=== PATIENT | female | born 1995 | race Caucasian/White ===

== ENCOUNTER 2016-04-06 10:52 | Inpatient (IN) | payer OTHER ==
[~2016-04-06] VITALS: Ht 162.6 cm; Wt 78.5 kg
[2016-04-06 11:25] VITALS: BMI 29.7
[2016-04-06] MEDS ORDERED: TERBUTALINE 1 MG/ML VIAL SUBQ PRN (11:50)
[2016-04-06] MEDS ORDERED: METOCLOPRAMIDE 10 MG/2 ML VIAL IV PUSH PRN (11:50)
[2016-04-06] MEDS ORDERED: ONDANSETRON 4 MG VIAL IV PRN (11:50)
[2016-04-06] MEDS ORDERED: MORPHINE 4 MG/ML SYR IV PRN (11:50)
[2016-04-06] MEDS ORDERED: PROMETHAZINE 25 MG/ML VIAL IV PRN (11:50)
[2016-04-06] MEDS ORDERED: FAMOTIDINE 20 MG TAB PO PRN (11:50)
[2016-04-06] MEDS ORDERED: ALU/MAG/SIM 30 ML UDC PO PRN (11:50)
[2016-04-06] MEDS ORDERED: OXYTOCIN 15 UNITS/250 ML NS 250 ML IV SCH (11:50)
[2016-04-06] MEDS ORDERED: LIDOCAINE 1% BUFFERED 1 ML SYR INTRADERM PRN (11:50)
[2016-04-06] MEDS ORDERED: OXYTOCIN 15 UNITS/250 ML NS 15 UNITS in PART FILL PIGGYBACK 1 EA IV SCH (11:50)
[2016-04-06] MEDS ORDERED: PENICILLIN G 5 MU in SODIUM CHLORIDE 0.9% 250 ML IV ONE (11:50)
[2016-04-06] MEDS ORDERED: CEFAZOLIN (LD/OB) 100 ML IV PRN (11:50)
[2016-04-06] MEDS ORDERED: ACETAMINOPHEN 325 MG TAB PO PRN (11:50)
[2016-04-06] MEDS ORDERED: FAMOTIDINE 20 MG INJ IV PRN (11:50)
[2016-04-06] MEDS ORDERED: LIDOCAINE 1% 30 ML PF INFILTRATE ONE (11:50)
[2016-04-06 12:17] VITALS: Ht 162.6 cm; Wt 78.5 kg
[2016-04-06] MEDS: LACT RINGERS 1,000 ML IV SCH ×2 (12:30→22:57)
[2016-04-06] MEDS ORDERED: MISSING DOSE XX ONE ×2 (16:30→22:15)
[2016-04-06] MEDS ORDERED: ROPIV/FENT 0.2%-2MCG/ML 100 ML EPIDURAL ONE (16:47)
[2016-04-06] MEDS ORDERED: FENTANYL 100 MCG/2 ML AMP ONE (16:48)
[2016-04-06] MEDS ORDERED: LACT RINGERS 500 ML IV PRN (17:20)
[2016-04-06] MEDS ORDERED: SODIUM CHLORIDE 0.9% 500 ML IV PRN (17:20)
[2016-04-06] MEDS ORDERED: FENTANYL 100 MCG/2 ML AMP EPIDURAL ONE (17:20)
[2016-04-06] MEDS ORDERED: LACT RINGERS 500 ML IV ONE (17:20)
[2016-04-06] MEDS: PENICILLIN G 2.5 MU in SODIUM CHLORIDE 0.9% 100 ML IV SCH ×2 (18:05→22:57)
[2016-04-06] MEDS: ROPIV/FENT 0.2%-2MCG/ML 100 ML EPIDURAL SCH (18:21)
[2016-04-06] MEDS ORDERED: **ONLY ANESTEHSIA MAY ORDER OPIATES WHILE ON EPIDURAL XX SCH (20:00)
[2016-04-07] VITALS (15 sets, daily range): BP systolic 89–130; RESP 16–24; TEMP 97.3–98.2
[2016-04-07] MEDS: ROPIV/FENT 0.2%-2MCG/ML 100 ML EPIDURAL SCH (02:09)
[2016-04-07] MEDS: PENICILLIN G 2.5 MU in SODIUM CHLORIDE 0.9% 100 ML IV SCH ×2 (02:10→20:07)
[2016-04-07] MEDS ORDERED: DERMOPLAST SPRAY TOPICAL PRN (04:15)
[2016-04-07] MEDS ORDERED: MAG HYDROX 30 ML UDC PO PRN (04:15)
[2016-04-07] MEDS ORDERED: BISACODYL 10 MG SUPP RECTAL PRN (04:15)
[2016-04-07] MEDS ORDERED: ZOLPIDEM 5 MG TAB PO PRN (04:15)
[2016-04-07] MEDS ORDERED: MEASLES,MUMPS,RUBELLA VAC SUBQ.VACC ONE (04:15)
[2016-04-07] MEDS ORDERED: TDaP 0.5 ML VIAL IM.VACC ONE (04:15)
[2016-04-07] MEDS ORDERED: ASTRINGENT MED PADS 40'S TOPICAL PRN (04:15)
[2016-04-07] MEDS: MISOPROSTOL 200 MCG TAB PO SCH ×2 (04:34→10:14)
[2016-04-07] MEDS: Ibuprofen 600 MG TAB PO SCH ×4 (04:34→23:26)
[2016-04-07] MEDS: OXYTOCIN 15 UNITS/250 ML NS 250 ML IV SCH ×2 (04:34→04:35)
[2016-04-07] MEDS: PRENATAL VITAMIN TAB PO SCH (10:14)
[2016-04-07] MEDS: DOCUSATE SOD 100 MG CAP PO SCH ×2 (10:14→20:59)
[2016-04-08 01:03] VITALS: BP_SYST 91; RESP 15; TEMP 98
[2016-04-08 05:33] VITALS: BP_SYST 116; RESP 18; TEMP 97.6
[2016-04-08] MEDS: Ibuprofen 600 MG TAB PO SCH ×2 (05:44→11:58)
[2016-04-08] MEDS: PRENATAL VITAMIN TAB PO SCH (10:20)
[2016-04-08] MEDS: DOCUSATE SOD 100 MG CAP PO SCH (10:20)
[2016-04-08 10:37] VITALS: BP_SYST 118; RESP 16; TEMP 98.1
[2016-04-08 14:36] VITALS: BP_SYST 118; RESP 16; TEMP 98.1
== END 2016-04-08 15:43 | disposition home or self-care (01) | DRG 775 ==
LOC: LDOP 10:52 → LD 14:22 → OB 04-07 06:37
PROVIDERS: ADMIT Obstetrics & Gynecology; ATTEND Obstetrics & Gynecology
PROC: 10E0XZZ Delivery of Products of Conception, External Approach (ICD-10-PCS; principal; 2016-04-07)
PROC: 0HQ9XZZ Repair Perineum Skin, External Approach (ICD-10-PCS; 2016-04-07)
DX: O70.0 First degree perineal laceration during delivery (principal); Z37.0 Single live birth; Z3A.37 37 weeks gestation of pregnancy
CPT/HCPCS: 36415; 82803; 84112; 85014; 85018; 85025; 86850; 86900; 86901